=== PATIENT | female | born 1995 | race Caucasian/White ===

== ENCOUNTER → 2022-09-14 09:23 | Outpatient (CLI) | payer BC, SELFPAY ==
--- NOTE | ~2022-09-14 | US_ITS ---
US breast LT limited INDICATION: Palpable left breast lump TECHNIQUE: Dedicated limited breast ultrasound COMPARISON: No prior studies for comparison. FINDINGS: At the 12:00 position of the left breast in the area palpable concern, 2 cm from the nipple , there is an oval circumscribed parallel oriented hypoechoic mass with circumscribed margins measuri ng 7 x 4 x 5 mm. No internal vascularity or significant posterior features. No other discrete mass. IMPRESSION: 1: Left breast mass at 12:00, 2 cm from the nipple. This mass measures 7 mm and is likely benign. BI-RADS CATEGORY 3-PROBABLY BENIGN FINDING RECOMMENDATION: 6 month follow-up Limited left breast ultrasound recommended. Reviewed, dictated and finalized at location A.
== END ==
PROVIDERS: PCP Physician Assistant; Visit Provider Physician Assistant
DX: D24.2 Benign neoplasm of left breast (principal)
CPT/HCPCS: 76642

== ENCOUNTER 2022-09-28 01:52 | Day surgery (SDC) | payer BC, SELFPAY ==
[2022-09-22 10:53] VITALS: BMI 29.2
--- NOTE | 2022-09-25 16:04 | PM.HPGS ---
History of Present Illness History of Present Illness Consent: Risks, benefits, and alternatives have been discussed and questions answered. Patient agrees to proceed with procedure. Chief complaint: GERD, Abdom.distension,constipation, Narrative: Porter Shanks is a 27 year old female Philip being inv estigatedfor GERD and constipation .? She has a history of GERD.? States she has fatty? liver. States in October of 2019 she was going through really stressful periods and started having a lump in her throat and feeling full along with increased burping.? She also reported if she ate too late at night or had acidic type foods tomatoes, garlic or onion she would also have the early satiety or lump sensation.? She also complains that she has epigastric fullness and states that she never gets a sensation of being hungry as she will feel full for several hours unless she starts walking almost immediately after eating. she also suffers from chronic constipation but has had some improvement since adding kiwis to her diet. Review of Systems Review of Systems: All systems reviewed & are unremarkable except as noted in HPI and below PMFSH Past Medical History Medical History Anxiety Bloating Chronic constipation Early satiety Fatty liver Fibroadenoma of breast Gastroesophageal reflux disease Globus sensation Obesity Family History Family History Father Alcohol abuse Sibling Thyroid disease Grandparent Heart disease Hypertension Grandparent Asthma Social History Social History Social History: Recenrly moved here from [facility]. Smoking status: Never smoker Second hand tobacco smoke exposure: No Alcohol intake: never Substance use: never Lack of Transportation: No Lack of Food: Never True Current Housing: I Have Housing Concerned About Future Housing: No Difficulty Paying Gas/Electric Bills: No Difficulty Paying for Meds: No Currently Unemployed: No Education: Bachelor's Degree Living arrangements: with family Occupation/Education: occupation Gender identity (if verbalized by the patient): Female Spiritual care concerns: No Meds Home Medications and Allergies Home Medications Medication Instructions Recorded Confirmed Type levonorgestrel-ethinyl estradiol 1 tablet PO DAILY 09/08/22 09/22/22 History 0.1 mg-20 mcg tablet (Aubra EQ) omeprazole 20 mg capsule,delayed 20 mg PO DAILY #30 caps 09/16/22 09/22/22 Rx release cholecalciferol (vitamin D3) 125 125 mcg PO DAILY 09/22/22 09/22/22 History mcg (5,000 unit) tablet (Vitamin D3) cyanocobalamin (vitamin B-12) 1,000 mcg PO DAILY 09/22/22 09/22/22 History 1,000 mcg tablet (Vitamin B-12) Allergies Allergy/AdvReac Type Severity Reaction Status Date / Time No Known Allergies Allergy Verified 09/28/22 12:55 Exam Const: General: alert Orientation/consciousness: patient oriented x3 Resp: Auscultation: clear to auscultation bilaterally Cardio: Rhythm: regular rhythm GI: GI Palp: Yes Soft to palpation and No Tenderness to palpation present (GI) Neuro: General: patient oriented x3 Assessment and Plan Assessment and plan (1) Early satiety: Code(s): R68.81 - Early satiety Status: Acute Assessment and Plan: EGD with possible biopsy or dilatation or cautery. (2) Chronic constipation: Code(s): K59.09 - Other constipation Status: Acute Assessment and Plan: Colonoscopy with possible biopsy or polypectomy or cautery or injection of substances.
[2022-09-28 12:57] VITALS: BP 115/67; PULSE 85; RESP 18; TEMP 36.1; O2SAT 100
[2022-09-28] MEDS: LACTATED RINGERS 1,000 ML 150 ML IV CONT (12:58)
--- NOTE | 2022-09-28 13:54 | SUR.OPER ---
EGD: START-1355, END-1358. COLONOSCOPY: START-1404, END-1413
[2022-09-28] MEDS: SIMETHICONE ORAL SUSPENSION 20 MG/0.3 ML 30 ML BOTTLE 0.6 ML IRRIGATION (14:11)
[2022-09-28 14:17] VITALS: BP 96/58; PULSE 73; RESP 23; O2SAT 94
[2022-09-28 14:27] VITALS: BP 105/66; PULSE 61; RESP 17; O2SAT 100
[2022-09-28 14:37] VITALS: BP 106/69; PULSE 65; RESP 21; O2SAT 100
--- NOTE | 2022-09-28 15:04 | SUR.PHASEII ---
1456- H. Pylori positive. Dr. Fields aware.
== END 2022-09-28 14:54 | disposition home or self-care (01) ==
PROVIDERS: PCP Physician Assistant; Visit Provider Internal Medicine Gastroenterology
PROC: 0DJ08ZZ Inspection of Upper Intestinal Tract, Via Natural or Artificial Opening Endoscopic (ICD-10-PCS; CPT 43235; principal; 2022-09-28 14:30)
DX: K59.09 Other constipation (principal); K63.5 Polyp of colon; K21.9 Gastro-esophageal reflux disease without esophagitis; K76.0 Fatty (change of) liver, not elsewhere classified
CPT/HCPCS: 45385; 43239; 87081; 88305; J2704; J7120

== ENCOUNTER 2022-10-09 07:35 | Outpatient (CLI) | payer BC, SELFPAY ==
--- NOTE | ~2022-10-09 | NM_ITS ---
EXAM: NM gastric emptying study DATE: 10/09/2022 12:08 INDICATION: Localized satiety. TECHNIQUE: A gastric emptying study was performed using the methodology of Mariana SHAH, et al. J Nucl Med 2007; 48:568-572. The patient was given a meal consisting of 2 scrambled eggs labeled with 1.002 mCi Tc-99m sulfur colloid, 2 slices of toast, two packages of jam, and approximately 120 mL of water . Simultaneous anterior and posterior 1-min images of the abdomen were obtained with the patient supi ne at multiple time points over a total period of 4 hours. The geometric mean of anterior and posteri or views was determined, and the percentage retention was calculated for each time point. COMPARISON: None. FINDINGS: Gastric retention of the radiotracer-labeled meal was 46%, 18%, and 1% at the 1-hour, 2-hour, and 4-h our time points, respectively. With this technique, apparent rapid gastric emptying is suggested by < 30% gastric retention at 1 hour. Delayed gastric emptying is defined by gastric retention of >90% at 1 hour, >60% retention at 2 hours, or >10% retention at 4 hours. IMPRESSION: 1. Normal gastric emptying. Reviewed, dictated and finalized at location B. IMPRESSION: 1. Normal gastric emptying.
== END 2022-10-09 07:36 | disposition home or self-care (01) ==
PROVIDERS: PCP Physician Assistant; Visit Provider Nurse Practitioner
DX: K21.9 Gastro-esophageal reflux disease without esophagitis (principal); R09.89 Other specified symptoms and signs involving the circulatory and respiratory systems; R68.81 Early satiety
CPT/HCPCS: 78264; A9541